=== PATIENT | female | born 2005 ===

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

== ENCOUNTER 2024-08-14 10:00 | Outpatient (AMB) | payer OTHER, SELFPAY ==
--- NOTE | 2024-08-14 10:01 | AM.OFFWIN_ITS ---
Intake Vital Signs 08/14/24 10:05 Height 5 ft 3 in Weight 254 lb 6 oz BMI 45.1 BP 117/56 L Blood Pressure Location Lt brachial Position Sitting Respiration 13 Pulse 83 Pulse Source Pulse Oximeter Pulse Oximetry (%) 97 Oxygen Delivery Method Room Air Intake Visit Reasons: est/left ear pain Intake Note: Patient complaining of left earache and cant hear x 9 days. [employer]ime [employer] Operator Required: No Allergies No Known Allergies Allergy (Verified 08/14/24 10:08) Medication List - Last Reconciled 08/14/24 by DESIRE Puentes No Known Home Meds Do you need a note to return to daycare/school/sports/work: No HPI HPI Comments History of Present Illness Details 19-year-old female with no significant m edical history here today for complaints of left ear pain that started 9 days ago. She has been self treating with Ciprodex that she has had on hand without any improvement in her symptoms. She has also been taking Motrin without any prolonged relief. She denies any fever, chills, trauma to the ear, drainage from the ear. She does report that her hearing feels muffled on that side. She is not a current smoker. She reports that she is up-to-date on her vaccinations. She does not a PCP Exam Awake alert oriented, no acute distress Speaking in full sentences Left ear: Pain with external ear manipulation, EAC full white liquid, edematous, difficult to see the TMs but from what I can see it appears to be intact with cloudy fluid Right ear: EAC clear, TM intact and clear No mastoid tenderness bilat Plan Advised immediately to stop using Ciprodex. Start Augmentin and prednisone. Advised not to use any [id number] NSAIDs while taking prednisone. Advised to take both medications with food. I do strongly recommend a clinical follow up in about 10 days, sooner if symptoms worsen. However at the same time if her symptoms are completely resolve there is no need for a clinical recheck. This note is constructed using voice recognition software. While every effort has been made to ensure accuracy in dump motorman, still errors may have been included Sometimes, these errors may affect the content or meaning of the given sentence . Physical Exam Vital Signs: Last Vital Signs Pulse 83 08/14/24 10:05 Resp 13 08/14/24 10:05 BP 117/56 L 08/14/24 10:05 Pulse Ox 97 08/14/24 10:05 Oxygen Delivery Method Room Air 08/14/24 10:05 BMI result Body Mass Index 45.1 Assessment & Plan Assessment & Plan (1) Otitis media, left: Code(s): H66.92 - Otitis media, unspecified, left ear Qualifiers: Otitis media type: suppurative Chronicity: acute Recurrence: non- recurrent Spontaneous tympanic membrane rupture: without spontaneous rupture Qualified Code(s): H66.002 - Acute suppurative otitis media without spontaneous rupture of ear drum, left ear Plan: . Medications: New amoxicillin-pot clavulanate 875-125 mg 1 tab PO BID 7 days 14 tabs 0RF prednisone 50 mg PO DAILY 5 days 5 tabs 0RF Coding Level of Care Code Est Pt Level 3 (14148) Diagnoses Non-recurrent acute suppurative otitis media of left ear without spontaneous rupture of tympanic membrane H66.002 Otitis media type: suppurative Chronicity: acute Recurrence: non-recurrent Spontaneous tympanic membrane rupture: without spontaneous rupture
[2024-08-14 10:05] VITALS: BP 117/56; PULSE 83; RESP 13; O2SAT 97; BMI 45.1
== END 2024-08-14 11:19 | disposition home or self-care (01) ==
PROVIDERS: Visit Provider Nurse Practitioner Family
DX: H66.002 Acute suppurative otitis media without spontaneous rupture of ear drum, left ear (principal)

== ENCOUNTER → 2024-08-14 10:00 | Outpatient (BNVA) | payer OTHER, SELFPAY | PROVIDERS: Visit Provider Nurse Practitioner Family | DX: H66.002 Acute suppurative otitis media without spontaneous rupture of ear drum, left ear (principal) | CPT/HCPCS: 99212 ==